=== PATIENT | male | born 1985 ===

== ENCOUNTER 2018-07-07 19:21 | Emergency (ER) | payer MEDICAID ==
[2018-07-07 19:29] VITALS: BP 136/84; PULSE 75; RESP 18; TEMP 98.5; O2SAT 100
[2018-07-07] MEDS ORDERED: Oxycodone/Acetaminophen 5/325 mg Tab PO STA (19:59)
--- NOTE | 2018-07-07 20:45 | ED PDOC ---
Upper Extremity Pain/Injury Time Seen by Provider: 07/07/18 19:33 Chief Complaint (Nursing): Upper Extremity Problem/Injury Chief Complaint (Provider): Left shoulder pain History Per: Patient History/Exam Limitations: no limitations Onset/Duration Of Symptoms: Days Current Symptoms Are (Timing): Still Present Additional Complaint(s): 33 yo male with no medical problems presents for evaluation of left shoulder pain. PT states that it has been going on for months. Pt states 2 weeks ago the pain became worse. Pt denies numbness/tingling. Pt states no trauma or change in activities. Pt has taken motrin a few times but states it does not help. Past Medical History Reviewed: Historical Data, Nursing Documentation, Vital Signs Vital Signs: Last Vital Signs Temp 98.5 F 07/07/18 19:28 Pulse 75 07/07/18 19:28 Resp 18 07/07/18 19:28 BP 136/84 07/07/18 19:28 Pulse Ox 100 07/07/18 19:28 - Medical History PMH: No Chronic Diseases - Surgical History Surgical History: No Surg Hx - Family History Family History: States: No Known Family Hx - Living Arrangements Living Arrangements: With Family - Social History Current smoker - smoking cessation education provided: No - Home Medications Home Medications: Ambulatory Orders Medication Instructions Recorded oxyCODONE/Acetaminophen [Percocet 1 ea PO Q6H PRN #10 tab 07/07/18 5/325 mg Tab] - Allergies Allergies/Adverse Reactions: Allergies Allergy/AdvReac Type Severity Reaction Status Date / Time banana Allergy SWELLING Verified 07/07/18 19:27 Review of Systems ROS Statement: Except As Marked, All Systems Reviewed And Found Negative Constitutional: Negative for: Fever, Chills Musculoskeletal: Positive for: Shoulder Pain Skin: Negative for: Rash, Bruising Physical Exam - Reviewed Nursing Documentation Reviewed: Yes Vital Signs Reviewed: Yes - Physical Exam Appears: Positive for: Well, Non-toxic, No Acute Distress Head Exam: Positive for: ATRAUMATIC, NORMAL INSPECTION, NORMOCEPHALIC Skin: Positive for: Normal Color, Warm, DRY Eye Exam: Positive for: Normal appearance ENT: Positive for: Normal ENT Inspection Neck: Positive for: Normal Cardiovascular/Chest: Negative for: Bradycardia, Tachycardia Respiratory: Negative for: Accessory Muscle Use, Respiratory Distress Back: Positive for: Normal Inspection Extremity: Positive for: Tenderness (Over the anterior humerus, left ). Negative for: Normal ROM (Decreased adduction on the left shoulder due to pain), Deformity, Swelling Neurologic/Psych: Positive for: Alert, Oriented - ECG O2 Sat by Pulse Oximetry: 100 Medical Decision Making Medical Decision Making: Percocet PO in Er. XR without acute fracture or dislocation. Narcotic prescriptions reviewed on [place] [facility] [employer] Aware - No Rx in the last year Disposition - Clinical Impression Clinical Impression: Shoulder pain - Patient ED Disposition Is Patient to be Admitted: No Counseled Patient/Family Regarding: Diagnosis, Need For Followup, Rx Given - Disposition Referrals: You Reece MD [Staff Provider] - Disposition: Routine/Home Disposition Time: 20:47 Condition: GOOD Prescriptions: oxyCODONE/Acetaminophen [Percocet 5/325 mg Tab] 1 ea PO Q6H PRN #10 tab PRN Reason: Pain, Severe (8-10) Instructions: Shoulder Pain (DC)
--- NOTE | 2018-07-08 10:36 | RAD ---
Date of service: 07/07/2018 PROCEDURE: Pain, decreased ROM HISTORY: pain, decreased ROM COMPARISON: No prior. FINDINGS: BONES: Bone alignment and mineralization are normal. There is no acute displaced fracture or bone destruction. JOINTS: The glenohumeral and acromioclavicular joints are preserved. No significant degenerative osteoarthrosis. SOFT TISSUES: Normal. OTHER FINDINGS: None. IMPRESSION: No acute displaced fracture or dislocation.
== END 2018-07-07 20:51 | disposition home or self-care (01) ==
LOC: H.ER 19:21
DX: M25.512 Pain in left shoulder (principal)